=== PATIENT | male | born 1960 | race Caucasian/White ===

== ENCOUNTER → 2016-10-27 | Outpatient (CLI) | payer BC, OTHER ==
--- NOTE | ~2016-10-27 | 2DMMODE ---
[facility] [address] [place] [address] 2 D/M-MODE ECHOCARDIOGRAM Name: JIGNESH NICOLAS Room #: REG [place]#: [id number] Admission: 10/27/16 Attend Phys: Gilberto Nieves Discharge: Date of : 56 Date of Service: 10/27/16 1625 Report #: [id number] THIS REPORT FOR: //name// APPROVED REPORT Study performed: 10/27/2016 14:30:26 EXAM: Comprehensive 2D, Doppler, and color-flow Echocardiogram Patient Location: Out-Patient Room #: Echo lab BSA: 2.17 Rhythm: Atrial Fibrillation Other Information Study Quality: Good Indications Atrial Fibrillation Hypertension/HDD 2D Dimensions RVDd: 32.82 mm LVEF(%): 42.48 (>50%) IVSd: 12.43 (7-11mm) LVOT Diam: 22.58 (18-24mm) LVDd: 40.96 mm PWd: 11.96 (7-11mm) Ascending Ao: 32.16 (22-36mm) LVDs: 32.52 (25-40mm) Aortic Root: 33.60 mm IVC: 26.00 mm North's LVEF: 42.48 % Volumes Left Atrial Volume (Systole) Single Plane 4CH: 82.47 mL Single Plane 2CH: 108.37 mL LA ESV Index: 47.00 mL/m2 Aortic Valve AoV Peak Edu.: 1.14 m/s AO Peak Gr.: 5.24 mmHg LVOT Max P.27 mmHg LVOT Max V: 1.02 m/s KAI Vmax: 3.59 cm2 Mitral Valve MV Decel. Time: 95.44 ms MV E Max Edu.: 1.12 m/s [facility] [address] [place] [address] 2 D/M-MODE ECHOCARDIOGRAM Name: JIGNESH NICOLAS [facility] [id number] Admission: 10/27/16 Attend Phys: Gilberto Vill[facility]alselect [facility] Discharge: Date of : 56 Date of Service: 10/27/16 1625 Report #: [id number] Pulmonary Valve PV Peak Edu.: 0.75 m/s PV Peak Gr.: 2.26 mmHg Tricuspid Valve RAP Estimate: 10.00 mmHg Left Ventricle The left ventricle is normal size. Mild concentric left ventricular hypertrophy. The left ventricular systolic function is normal. The left ventricular ejection fraction is within the normal range. LVEF is 55%. This study is not technically sufficient to allow evaluation of the LV diastolic function due to atrial fibrillation. Right Ventricle The right ventricle is normal size. The right ventricular systolic function is normal. Atria Left atrium is dilated. Right atrium is at the upper limits of normal. Aortic Valve The aortic valve is normal in structure. Trace aortic regurgitation is present. There is no aortic valvular stenosis. Mitral Valve The mitral valve is normal in structure. Mild mitral regurgitation. No evidence of mitral valve stenosis. Tricuspid Valve The tricuspid valve is normal in structure. There is no tricuspid valve stenosis. Trace tricuspid regurgitation. Pulmonic Valve The pulmonary valve is normal in structure. Trace pulmonic regurgitation. Great Vessels The aortic root is normal in size. IVC is dilated and collapses >50% with inspiration. Pericardium Trace pericardial effusion. <Conclusion> [facility] [address] [place] [address] 2 D/M-MODE ECHOCARDIOGRAM Name: JIGNESH NICOLAS Room #: [facility] [place]#: [id number] Admission: 10/27/16 Attend Phys: Gilberto Vill[facility]alselect [facility] Discharge: Date of : 56 Date of Service: 10/27/161624 Report #: [id number] The left ventricle is normal size. Mild concentric left ventricular hypertrophy. The left ventricular systolic function is normal. The right ventricle is normal size. Left atrium is dilated. Trace aortic regurgitation is present. Mild mitral regurgitation. Trace tricuspid regurgitation. <ELECTRONICALLY SIGNED> By: Bernard Moulton MD 10/27/16 1625 1625 1625 Bernard Moulton MD /INF
== END ==
LOC: CV 09:13
DX: I10 Essential (primary) hypertension (principal); I48.91 Unspecified atrial fibrillation; I34.0 Nonrheumatic mitral (valve) insufficiency

== ENCOUNTER → 2016-11-21 | Outpatient (CLI) | payer BC, OTHER ==
[~2016-11-21] VITALS: Ht 190.5 cm; Wt 86.2 kg
[~2016-11-21] MED LIST: ATORVASTATIN CA40 MG PO; FLECAINIDE ACET50 M1 PO; PRADAXA150 MG PO; TOPROL XL100 MG PO
--- NOTE | ~2016-11-21 | EKG ---
[address] [place] [address] ELECTROCARDIOGRAM REPORT Name: JIGNESH NICOLAS Room #: [facility] [id number] Admission: 11/21/16 Attend Phys: Gilberto Nieves MD Discharge: Date of : 56 Report #: [id number] THIS REPORT FOR: //name// [facility] Test Date: 2016-11-21 Test Time: 09:10:57 Pat Name: JIGNESH NICOLAS Department: Room: Gender: Conduit Helper: clyde : 1960 Requested By: Gilberto Nieves Order Number: [id number] MD: Taco Arroyo Measurements Intervals [place] Rate: 61 P: 73 DE: 240 QRS: 82 QRSD: 107 T: 45 QT: 478 QTc: 482 Interpretive Statements Sinus rhythm Prolonged DE interval Left atrial enlargement RSR' in V1 or V2, right VCD Borderline prolonged QT interval No previous ECG available for comparison Electronically Signed On 11-23-2016 13:26:44 CDT by Taco Arroyo [email or web address] <ELECTRONICALLY SIGNED> By: Taco Arroyo MD, [facility] 11/23/16 1326 0910 0910 Taco Arroyo MD, [facility] /EPI
--- NOTE | ~2016-11-21 | P ---
[facility] [place] [place] [address] PROCEDURE REPORT Name: JIGNESH ANDERSON [facility] [id number] Admission: 11/21/16 Attend Phys: Gilberto Nieves MD Discharge: Date of : 56 Report #: [id number] THIS REPORT FOR: //name// CC: FAM unknown Gilberto Nieves DATE OF SERVICE: 11/21/2016 PREOPERATIVE DIAGNOSIS: Atrial fibrillation. POSTOPERATIVE DIAGNOSIS: Atrial fibrillation. HISTORY: Mr. Jignesh Anderson is a 56-year-old, recently diagnosed with AFib, who is here for cardioversion, after being anticoagulated and loaded with flecainide. DESCRIPTION OF PROCEDURE: The patient underwent informed consent. The patient was sedated by the anesthesiology service. Once the patient was sedated, he underwent a successful 200 joule synchronized cardioversion with anabaptism of sinus rhythm. There were no complications. CONCLUSION: Successful DC cardioversion of atrial fibrillation to sinus rhythm. <ELECTRONICALLY SIGNED> By: Gilberto Nieves MD 11/21/16 1132 0914 0953 Gilberto Nieves MD /nt
[2016-11-21 07:57] VITALS: BP 128/84
[2016-11-21 07:57] LABS: HEMATOCRIT 47.9 % (42.0-52.0); HEMOGLOBIN 16.2 gm/dL (14.0-18.0); MCH 30.4 pg (26.0-34.0); MCHC 33.7 g/dL (28.0-37.0); MCV 90.1 fL (80.0-100.0); RBC 5.32 mil/uL (4.50-6.00); RDW 14.9 % (10.5-14.5); WBC 7.4 thou/uL (4.0-11.0)
[2016-11-21 08:11] LABS: APTT 44.8 Seconds (24.5-32.8); INR 1.2; PROTIME 12.1 Seconds (9.3-11.4)
[2016-11-21 08:15] LABS: CALCIUM 8.8 mg/dL (8.5-10.1)
[2016-11-21 08:20] LABS: TOTAL BILIRUBIN 1.2 mg/dL (<0.1-1.0); TOTAL PROTEIN 7.1 g/dL (6.4-8.2)
== END | disposition home or self-care (01) ==
LOC: CATH 07:15
PROVIDERS: Internal Medicine Cardiovascular Disease
DX: I48.91 Unspecified atrial fibrillation (principal); I10 Essential (primary) hypertension; E78.5 Hyperlipidemia, unspecified; Z98.890 Other specified postprocedural states; Z82.49 Family history of ischemic heart disease and other diseases of the circulatory system

== ENCOUNTER → 2020-03-22 | Outpatient (CLI) | payer OTHER | LOC: SJCVCIMAG 11:09 | PROVIDERS: ATTEND Internal Medicine Cardiovascular Disease | DX: I08.8 Other rheumatic multiple valve diseases (principal); I48.91 Unspecified atrial fibrillation ==

== ENCOUNTER → 2020-04-11 | Outpatient (CLI) | payer OTHER | LOC: LAB 09:00 | PROVIDERS: ATTEND Internal Medicine Cardiovascular Disease | DX: Z01.812 Encounter for preprocedural laboratory examination (principal); Z20.822 Contact with and (suspected) exposure to COVID-19 ==

== ENCOUNTER → 2020-04-11 | Outpatient (CLI) | payer OTHER ==
[2020-04-11 08:39] LABS: ABSOLUTE NEUTROPHILS 4.8 thou/uL (1.4-8.2); BASOPHILS 0.7 % (0.0-2.0); EOSINOPHILS 4.1 % (0.0-3.0); HEMATOCRIT 46.1 % (42.0-52.0); HEMOGLOBIN 14.9 gm/dL (14.0-18.0); LYMPHOCYTES 17.2 % (24.0-44.0); MCH 29.4 pg (26.0-34.0); MCHC 32.4 g/dL (28.0-37.0); PLATELET COUNT 261 thou/uL (150-400); RBC 5.07 mil/uL (4.50-6.00); RDW 13.9 % (10.5-14.5); WBC 7.1 thou/uL (4.0-11.0)
[2020-04-11 09:02] LABS: ALBUMIN 3.8 g/dL (3.4-5.0); CALCIUM 9.2 mg/dL (8.5-10.1); POTASSIUM 4.7 mmol/L (3.5-5.1); TOTAL BILIRUBIN 0.8 mg/dL (0.2-1.0); TOTAL PROTEIN 7.1 g/dL (6.4-8.2)
== END ==
LOC: CAT 07:41
PROVIDERS: ATTEND Internal Medicine Cardiovascular Disease
DX: I25.10 Atherosclerotic heart disease of native coronary artery without angina pectoris (principal); R91.8 Other nonspecific abnormal finding of lung field; J98.11 Atelectasis; M47.814 Spondylosis without myelopathy or radiculopathy, thoracic region

== ENCOUNTER → 2020-04-16 | Outpatient (CLI) | payer OTHER ==
[~2020-04-16] VITALS: Ht 190.5 cm; Wt 88.0 kg
[~2020-04-16] MED LIST changes: +AVAPRO75 MG PO; +ELIQUIS5 MG PO
--- NOTE | ~2020-04-16 | P ---
[facility] [place] [place] [address] PROCEDURE REPORT Name: JIGNESH NICOLAS Room #: REG [facility]#: [id number] Admission: 04/16/20 Attend Phys: Nahid Castrejon MD, Discharge: Date of : 56 Report #: [id number] THIS REPORT FOR: cc: Mik Casarez MD, Neal A. MD Couchonnal, Luis F. MD ~ DATE OF SERVICE: 04/16/2020 PREOPERATIVE DIAGNOSIS: Atrial fibrillation. POSTOPERATIVE DIAGNOSIS: Atrial fibrillation. PROCEDURES PERFORMED: 1. Atrial fibrillation ablation, CPT code 96672. 2. 3D mapping, CPT code 21484. 3. Intracardiac echo, CPT code 04200. 4. Focal ablation, CPT code 41435. ANESTHESIA: The patient underwent general anesthesia with no anesthesia related complications. DESCRIPTION OF PROCEDURE: The patient underwent informed consent. We discussed the details of the procedure including the risks, which include but not limited to bleeding, infection, vascular damage, cardiac perforation, pneumothorax. He understood these risks and is willing to proceed. The patient was brought to EP laboratory in fasting and sedated state, prepped and draped in a sterile fashion. I injected lidocaine to the right groin and obtained access to the right femoral vein x3, placing an 8, 9 and 7-Ukrainian short sheath using the modified Seldinger technique. Next, under fluoroscopy, decapolar catheter was placed in the coronary sinus and ICE catheter was placed in the right atrium. At baseline, the patient was in atrial fibrillation with a controlled ventricular response. Using intracardiac ultrasound, there was evidence of 2 left pulmonary veins, the left atrial appendage was inspected and there was no evidence of clot. Next, the patient had evidence of a right superior, right middle and right inferior pulmonary vein. Next, the patient was systemically heparinized and a transseptal was performed, which was straightforward and I exchanged the SL1 sheath for the cryo sheath. I inspected the left atrial anatomy, also with intracardiac ultrasound by taking the ultrasound camera via the cryo sheath into the left atrium. Next, the Lasso catheter was placed in the left atrium and a 3D voltage map of the left atrium was created. Next, I started by isolating the pulmonary veins. The left superior pulmonary vein underwent a 4-minute freeze and isolated within 49 seconds. The left inferior pulmonary vein underwent a 4-minute freeze and isolated within 85 seconds. A second freeze of 3 minutes duration was also [address] [address] PROCEDURE REPORT Name: JIGNESH NICOLAS Room #: REG CLI [place]#: [id number] Admission: 04/16/20 Attend Phys: Nahid Castrejon MD, Discharge: Date of : 56 Report #: [id number]. Next, the right superior pulmonary vein underwent a 300-second freeze, which resulted in isolation at 120 seconds. The right middle pulmonary vein underwent a 4-minute freeze followed by a 3-minute freeze, which resulted in isolation in the right inferior pulmonary vein, underwent a 4-minute freeze, which resulted in isolation in 90 milliseconds. Next, a repeat 3D voltage map was created and all veins were noted to be isolated. The patient remained in atrial fibrillation. Therefore, I decided to perform a roofline. Roofline creation. Using the cryoablation balloon, I performed 4 freezes of the posterior roof anchored from the left superior pulmonary vein and then performed a single 3-minute freeze anchored from the right superior pulmonary vein. Post-ablation, a repeat voltage map was created, which showed that all 4 pulmonary veins were isolated and the posterior roof and posterior mid atrium were now electrically isolated. The patient then underwent a 200 joule synchronized cardioversion with protestant of sinus rhythm. Next, an EP study was performed and AV block was noted at 380 milliseconds. AV ignacia ERP was noted at 290 milliseconds at a [address] cycle length. Aggressive atrial burst pacing down to 250 milliseconds was performed and I could not induce any atrial flutter, atrial fibrillation or SVT. As such, the procedure was concluded. The patient received systemic protamine and once the ACT was within acceptable range, catheters and sheaths were pulled and hemostasis was obtained. A xkmiec-ly-nifaq suture with a 3-way stopcock was performed. Post-ablation, he was in sinus rhythm with a sinus cycle length of 970 milliseconds, IA interval 210 milliseconds, QRS duration 93 milliseconds, QT interval 451 milliseconds. CONCLUSIONS: 1. Successful AFib ablation with isolation of the pulmonary veins including a right middle pulmonary vein. 2. Successful posterior roof isolation. By: [id number] [id number] Gilberto Nieves MD /nt
[2020-04-16 07:26] VITALS: BP 121/86
[2020-04-16 07:38] LABS: ABSOLUTE NEUTROPHILS 4.2 thou/uL (1.4-8.2); MCV 90.4 fL (80.0-100.0); WBC 6.5 thou/uL (4.0-11.0)
[2020-04-16 07:40] LABS: BASOPHILS 0.7 % (0.0-2.0); HEMATOCRIT 45.2 % (42.0-52.0); LYMPHOCYTES 19.6 % (24.0-44.0); MCH 29.9 pg (26.0-34.0); MCHC 33.1 g/dL (28.0-37.0); PLATELET COUNT 239 thou/uL (150-400); POLYS 64.7 % (36.0-66.0); RDW 13.7 % (10.5-14.5)
[2020-04-16 07:58] LABS: CALCIUM 8.4 mg/dL (8.5-10.1); POTASSIUM 4.1 mmol/L (3.5-5.1)
[2020-04-16 08:00] LABS: APTT 27.8 Seconds (24.5-32.8); PROTIME 10.4 Seconds (9.3-11.4)
[2020-04-16 08:07] LABS: ALBUMIN 3.7 g/dL (3.4-5.0); TOTAL BILIRUBIN 0.4 mg/dL (0.2-1.0); TOTAL PROTEIN 6.9 g/dL (6.4-8.2)
--- NOTE | 2020-04-16 14:54 | 2DMMODE ---
[facility] [place] [address] 2 D/M-MODE ECHOCARDIOGRAM Name: JIGNESH NICOLAS Room #: REG DIAN DonovanSita#: [id number] Admission: 04/16/20 Attend Phys: Nahid Castrejon MD, Discharge: Date of : 56 Report #: [id number] THIS REPORT FOR: cc: Mik Casarez MD, Neal A. MD Santiago, Patrick MD [facility] ~ APPROVED REPORT Study performed: 04/16/2020 13:28:17 EXAM: Limited 2D Echocardiogram Patient Location: Observation Room #: 2 Status: routine BSA: 2.17 HR: 75 bpm BP: 121/86 mmHg Other Information Study Quality: Adequate Indications 2D Dimensions IVSd: 11.83 (7-11mm) LVOT Diam: 24.41 (18-24mm) LVDd: 44.07 mm PWd: 10.81 (7-11mm) Left Atrium: 51.91 (27-40mm) Aortic Root: 34.38 mm Left Ventricle The left ventricle is normal size. There is normal left ventricular wall thickness. The left ventricular systolic function is normal. The left ventricular ejection fraction is within the normal range. LVEF is 55-60%. Right Ventricle The right ventricle is normal size. Atria The left atrium size is normal. Aortic Valve The aortic valve is normal in structure. [facility] [address] [place] [address] 2 D/M-MODE ECHOCARDIOGRAM Name: JIGNESH NICOLAS Room #: REG [place]#: [id number] Admission: 04/16/20 Attend Phys: Nahid Castrejon, Discharge: Date of : 56 Report #: [id number] Mitral Valve The mitral valve is normal in structure. Great Vessels The aortic root is normal in size. Pericardium Trace pericardial effusion. <Conclusion> Normal left ventricular size/mild septal basal hypertrophy Ejection fraction 55% Normal right ventricular size/function Normal atrial size Limited study, Doppler, color flow study was not performed Normal aortic/mitral valve structure Physiological pericardial effusion <ELECTRONICALLY SIGNED> By: Nahid Castrejon MD, FACC 04/16/20 1454 1454 145 Nahid Castrejon MD, FACC /INF
--- NOTE | 2020-04-17 08:08 | TEE ---
[facility] [address] [address] [place] [address] TRANSESOPHAGEAL ECHOCARDIOGRAM Name: JIGNESH NICOLAS Room #: REG [facility]#: [id number] Admission: 04/16/20 Attend Phys: Nahid Castrejon MD, Discharge: Date of : 56 Report #: [id number] THIS REPORT FOR: cc: Mik Casarez MD, Neal A. MD Santiago, Patrick MD [facility] ~ APPROVED REPORT Study performed: 04/16/2020 07:51:55 EXAM: Transesophageal Echocardiogram Patient Location: Observation Room #: Status: routine BSA: 2.15 HR: 104 bpm BP: 121/86 mmHg Other Information Study Quality: Good Indications Atrial Fibrillation Procedure After obtaining informed consent, patient underwent transesophageal echo in the EP Lab. Type of Sedation : General Anesthesia Sedation start time: 824 Case end Time: 834 Transesophageal probe was inserted and advanced into esophagus without difficulty by Nahid Castrejon MD. Echo enhancement indication: R/O Septal defect. Echo enhancement agent administered: Agitated Saline The OSMANI was performed without complications. Throughout the procedure, the blood pressure, pulse oximetry, cardiac rhythm, and rate were monitored. The patient tolerated the procedure without adverse effects. Recovery from conscious sedation was uneventful and vital signs were stable. Left Ventricle The left ventricle is normal size. Basal septal hypertrophy The left ventricular systolic function is normal. The left ventricular [facility] [address] [place] [address] TRANSESOPHAGEAL ECHOCARDIOGRAM Name: JIGNESH NICOLAS Room #: REG [facility]#: [id number] Admission: 04/16/20 Attend Phys: Nahid Castrejon, Discharge: Date of : 56 Report #: [id number] ejection fraction is within the normal range. 60% Right Ventricle The right ventricle is normal size. The right ventricular systolic function is normal. Atria Left atrium is mildly dilated. The right atrium size is normal. Aortic Valve The aortic valve is normal in structure. No aortic regurgitation is present. There is no aortic valvular stenosis. Mitral Valve Myxomatous mitral valve Trace central mitral valve insufficiency No evidence of mitral valve stenosis. Tricuspid Valve The tricuspid valve is normal in structure. There is no tricuspid valve regurgitation noted. Pulmonic Valve The pulmonary valve is normal in structure. Great Vessels The aortic root is normal in size. Pericardium There is no pericardial effusion. 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 [address] [place] [address] TRANSESOPHAGEAL ECHOCARDIOGRAM Name: JIGNESH NICOLAS Room #: REG M.R.#: [id number] Admission: 04/16/20 Attend Phys: Nahid Castrejon, Discharge: Date of : 56 Report #: [id number] No pericardial effusion <ELECTRONICALLY SIGNED> By: Nahid Castrejon MD, FACC 04/17/20 08 08 08 Nahid Castrejon MD, FACC /INF
== END | disposition home or self-care (01) ==
LOC: CATH 04-13 06:39
PROVIDERS: Internal Medicine Cardiovascular Disease; ATTEND Internal Medicine
DX: I48.91 Unspecified atrial fibrillation (principal); I34.0 Nonrheumatic mitral (valve) insufficiency; I10 Essential (primary) hypertension; E78.5 Hyperlipidemia, unspecified; Z98.890 Other specified postprocedural states; Z79.899 Other long term (current) drug therapy; Z79.01 Long term (current) use of anticoagulants; Z20.822 Contact with and (suspected) exposure to COVID-19; Z98.52 Vasectomy status; Z82.49 Family history of ischemic heart disease and other diseases of the circulatory system
CPT/HCPCS: 62110; 62900; 70005

== ENCOUNTER → 2020-07-23 | Outpatient (CLI) | payer OTHER ==
[~2020-07-23] VITALS: Ht 188 cm; Wt 88.2 kg
[~2020-07-23] MED LIST changes: +MULTAQ 400 MG400 MG PO
--- NOTE | ~2020-07-23 | P ---
[facility] [place] [address] PROCEDURE REPORT Name: MARIA ISABELJIGNESH Chaudhary [facility] [id number] Admission: 07/23/20 Attend Phys: Gilberto Nieves MD Discharge: Date of : 56 Report #: [id number] THIS REPORT FOR: cc: Mik Casarez MD, Neal A. MD Couchonnal, Luis F. MD ~ DOC #: [id number] Gilberto Nieves MD DATE OF SERVICE: 07/23/2020 PROCEDURE: Cardioversion. PREOPERATIVE DIAGNOSIS: Atrial fibrillation. POSTOPERATIVE DIAGNOSIS: Atrial fibrillation. DESCRIPTION OF PROCEDURE: The patient underwent informed consent. He was then sedated by the anesthesiology service. Once sedated, underwent a 200 joules synchronized cardioversion with hindu of sinus rhythm. There are no procedure related complications. CONCLUSIONS: Successful DC cardioversion with hindu of sinus rhythm. Gilberto Nieves MD LFC/SOHAM By: 0932 0010 Gilberto Nieves MD /nt
[2020-07-23 07:10] VITALS: BP 112/82
[2020-07-23 07:46] LABS: PROTIME 10.8 Seconds (9.3-11.4)
[2020-07-23 07:47] LABS: ABSOLUTE NEUTROPHILS 4.7 thou/uL (1.4-8.2); BASOPHILS 0.6 % (0.0-2.0); EOSINOPHILS 5.2 % (0.0-3.0); HEMATOCRIT 47.1 % (42.0-52.0); HEMOGLOBIN 15.4 gm/dL (14.0-18.0); MCH 28.8 pg (26.0-34.0); MCHC 32.7 g/dL (28.0-37.0); MCV 88.1 fL (80.0-100.0); MONOCYTES 10.1 % (1.0-8.0); POLYS 67.1 % (36.0-66.0); RBC 5.35 mil/uL (4.50-6.00); RDW 14.7 % (10.5-14.5)
[2020-07-23 07:48] LABS: CALCIUM 8.6 mg/dL (8.5-10.1); POTASSIUM 4.2 mmol/L (3.5-5.1)
[2020-07-23 07:54] LABS: ALBUMIN 3.7 g/dL (3.4-5.0); TOTAL BILIRUBIN 0.9 mg/dL (0.2-1.0)
[2020-07-23 08:57] LABS: PLATELET COUNT 233 thou/uL (150-400)
== END | disposition home or self-care (01) ==
LOC: CATH 06:27
PROVIDERS: ATTEND Internal Medicine Cardiovascular Disease
DX: I48.91 Unspecified atrial fibrillation (principal); I42.9 Cardiomyopathy, unspecified; I10 Essential (primary) hypertension; E78.5 Hyperlipidemia, unspecified; K21.9 Gastro-esophageal reflux disease without esophagitis; Z98.890 Other specified postprocedural states; Z79.899 Other long term (current) drug therapy; Z98.52 Vasectomy status; Z82.49 Family history of ischemic heart disease and other diseases of the circulatory system; Z79.01 Long term (current) use of anticoagulants; Z20.822 Contact with and (suspected) exposure to COVID-19
CPT/HCPCS: 62110; 62900

== ENCOUNTER 2020-09-20 06:22 | Observation (INO) | payer OTHER ==
[~2020-09-20] VITALS: Ht 188 cm; Wt 91.5 kg
--- NOTE | ~2020-09-20 | P ---
[facility] [place] [address] PROCEDURE REPORT Name: JIGNESH NICOLAS Room #: 200-I [facility] Alma Núñez#: [id number] Admission: 09/20/20 Attend Phys: Gilberto Nieves MD Discharge: 09/21/20 Date of : 56 Report #: [id number] THIS REPORT FOR: cc: Mik Casarez MD, Neal A. MD Couchonnal, Luis F. MD ~ DATE OF SERVICE: 09/20/2020 ATRIAL FIBRILLATION/ATRIAL FLUTTER ABLATION PREOPERATIVE DIAGNOSIS: Atrial fibrillation/atrial flutter. POSTOPERATIVE DIAGNOSIS: Atrial fibrillation/atrial flutter. HISTORY: The patient is a 60-year-old with recent AFib ablation performed in 04/2020, who has had clinical recurrence and is here for redo procedure. PROCEDURES PERFORMED: 1. AFib ablation, CPT code 33817. 2. 3D mapping, CPT code 10651. 3. Arterial line placement, CPT code 99036. 4. Intracardiac echo, CPT code 55678. 5. Focal ablation, CPT code 91559. 6. Second pathway ablation, CPT code 45100. DESCRIPTION OF PROCEDURE: The patient was brought to the EP laboratory in fasting and sedated state, prepped and draped in a standard fashion. He was placed under general anesthesia. I obtained access of the right femoral vein placing an 8, 6 and 9-Tajik short sheath. In the left femoral vein, I placed a 7-Tajik short sheath. In the left femoral artery, I placed a 5-Tajik short sheath for arterial blood pressure monitoring. Next, under fluoroscopy, a decapolar catheter was placed in the coronary sinus. Of note, this would frequently fall out throughout the procedure, but was easily repositioned. The ICE catheter was placed into the right atrium and there was evidence of 2 left and 2 right pulmonary veins. At baseline, the patient was in atrial fibrillation. Next, the patient was systemically heparinized and a transseptal was performed using Agilis sheath and a [place] needle. This was straightforward and then I placed the PentaRay catheter into left atrium and a repeat voltage map of the left atrium was created. This showed that all pulmonary veins were isolated except for the left inferior pulmonary vein. There were very small signals remaining in this vein, but from the prior procedure the majority of the posterior roof region was also isolated. Therefore, SmartTouch ThermoCools placed into the left atrium and I started by isolating the left posterior wall. I performed extensive ablation along the lower aspect of the posterior wall and I was careful to monitor temperatures along the esophagus where we used shorter ablation lesions and the esophageal temperatures remained within acceptable [address] [address] PROCEDURE REPORT Name: JIGNESH NICOLAS Room #: 200-I ELZA Núñez#: [id number] Admission: 09/20/20 Attend Phys: Gilberto Nieves MD Discharge: 09/21/20 Date of : 56 Report #: [id number] range. I then performed ablation along the ridge between the left superior and appendage. The patient appeared to organize into a mitral annular flutter, therefore a mitral annular flutter line was performed, which I performed along the anterior part of the atrium and made a connection to the right superior pulmonary vein. Along the right superior pulmonary vein up, pacing was performed at high output to ensure that no ablation was performed along the phrenic. After completion of this line, the patient degenerated from the mitral annular flutter into atrial fibrillation. Additional ablation was performed along the roof region and near the left atrial appendage. Next, a repeat voltage map was created and it showed that the entire posterior wall was isolated and there appeared to be a nice mitral annular line performed. As such, I pulled over to the right atrium and we mapped this area as well, which demonstrated essentially atrial fibrillation. There were no focal areas to ablate on this side. Therefore, the patient was cardioverted and underwent atrial flutter ablation with line performed at 6 o'clock along the tricuspid annulus. Post-ablation, the patient was in sinus rhythm. There was no evidence of pericardial effusion and there were no procedure-related complications. The patient received systemic protamine and once the ACT was within acceptable range, catheters and sheaths were pulled and hemostasis obtained. CONCLUSIONS: 1. Successful AFib ablation with re-isolation of the left inferior pulmonary vein. 2. Successful posterior wall isolation. 3. Successful mitral annular line ablation. 4. Successful right-sided atrial flutter ablation. By: 1021 0101 Gilberto Nieves MD /nt
[2020-09-20 07:32] VITALS: BP 128/87
[2020-09-20 07:46] LABS: ABSOLUTE NEUTROPHILS 3.9 thou/uL (1.4-8.2); BASOPHILS 0.7 % (0.0-2.0); EOSINOPHILS 4.4 % (0.0-3.0); HEMATOCRIT 45.1 % (42.0-52.0); HEMOGLOBIN 14.9 gm/dL (14.0-18.0); LYMPHOCYTES 19.6 % (24.0-44.0); MCH 29.7 pg (26.0-34.0); MCHC 33.1 g/dL (28.0-37.0); MCV 89.6 fL (80.0-100.0); MONOCYTES 10.9 % (1.0-8.0); PLATELET COUNT 211 thou/uL (150-400); POLYS 64.4 % (36.0-66.0); RBC 5.03 mil/uL (4.50-6.00); RDW 15.1 % (10.5-14.5)
[2020-09-20 07:56] LABS: CALCIUM 8.3 mg/dL (8.5-10.1); CREATININE 0.9 mg/dL (0.7-1.3); POTASSIUM 4.3 mmol/L (3.5-5.1)
[2020-09-20 08:02] LABS: ALBUMIN 3.5 g/dL (3.4-5.0); TOTAL BILIRUBIN 0.5 mg/dL (0.2-1.0); TOTAL PROTEIN 6.7 g/dL (6.4-8.2)
[2020-09-20 08:14] LABS: APTT 26.2 Seconds (24.5-32.8); PROTIME 10.3 Seconds (9.3-11.4)
[2020-09-20 15:30] VITALS: BP 113/72
[2020-09-20 15:52] VITALS: BP 113/72
[2020-09-20 19:25] VITALS: BP 104/76
--- NOTE | 2020-09-20 19:26 | NUR ---
PT CARE ASSUMED AT 0700. ASSESSMENTS CHARTED. MEDICATIONS CHARTED. RFA IV. SINUS TACHYCARDIA. URINAL. ADENOSINE GIVEN UNDER DR LASSITER SUPERVISION, NOT RESOLVED. DIOXIN GIVEN, NOT RESOLVED. BEDREST UNTIL 1935. AFIB ABLATION. BILAT GROIN; RT ARTERY, LT VENOUS, C/D/I. AMIODARONE AT 33 ML/HR.
[2020-09-21] VITALS: BP 110/65
[2020-09-21 03:41] VITALS: BP 103/61
--- NOTE | 2020-09-21 07:11 | EKG ---
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 : 1960 Requested By: Gilberto Nieves Order Number: [id number] MD: Nahid Castrejon Measurements Intervals [place] Rate: 147 P: WA: QRS: 75 QRSD: 82 T: -82 QT: 293 QTc: 459 Interpretive Statements Suspect atrail flutter Repol abnrm suggests ischemia, diffuse leads Compared to ECG 11/21/2016 09:10:57 Junctional tachycardia now present Early repolarization now present Possible ischemia now present Sinus rhythm no longer present First degree AV block no longer present Atrial abnormality no longer present Electronically Signed On 09-21-2020 7:11:07 CDT by Nahid Castrejon [email or web address] <ELECTRONICALLY SIGNED> By: Nahid Castrejon MD, [facility] 09/21/20 0711 1733 173 Nahid Castrejon MD, [facility] /EPI
[2020-09-21 07:34] VITALS: BP 114/74
[2020-09-21] MEDS ORDERED: PACERONE200 MG PO (10:11)
[2020-09-21 10:38] VITALS: BP 114/74
--- NOTE | 2020-09-21 10:43 | NUR ---
IV AND TELE DISCONTINUED AND PATIENT UNDERSTANDS ALL FOLLOW UP ORDERS. WILL DISCHARGE TO HOME.
[2020-09-21 11:13] VITALS: BP 114/74
--- NOTE | 2020-09-21 11:42 | EKG ---
[address] [place] [address] ELECTROCARDIOGRAM REPORT Name: JIGNESH NICOLAS Neena Room #: [facility]#: [id number] Admission: 09/20/20 Attend Phys: Gilberto Nieves MD Discharge: 09/21/20 Date of : 56 Report #: [id number] 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 : [id number] Requested By: Odette Mckay Order Number: [id number] MD: Nahid Castrejon Measurements Intervals [place] Rate: 74 P: 79 SC: 225 QRS: 51 QRSD: 98 T: 18 QT: 433 QTc: 481 Interpretive Statements Sinus rhythm Atrial premature complexes Prolonged SC interval Left atrial enlargement RSR' in V1 or V2, right VCD or RVH Left ventricular hypertrophy Borderline prolonged QT interval Compared to ECG 09/20/2020 17:33:57 Atrial premature complex(es) now present First degree AV block now present RSR' in V1 or V2 now present Left ventricular hypertrophy now present Electronically Signed On 09-21-2020 11:41:47 CDT by Nahid Castrejon [email or web address] <ELECTRONICALLY SIGNED> By: Nahid Castrejon MD, [facility] 09/21/20 1141 9 9 Nahid Castrejon MD, [facility] /EPI
== END 2020-09-21 11:17 | disposition home or self-care (01) ==
LOC: CATH 06:22 → 2N 15:45
PROVIDERS: ADMIT Internal Medicine Cardiovascular Disease; ATTEND Internal Medicine Cardiovascular Disease
DX: I48.91 Unspecified atrial fibrillation (principal); I48.92 Unspecified atrial flutter; I10 Essential (primary) hypertension; E78.5 Hyperlipidemia, unspecified
CPT/HCPCS: 10797; 62110; 62900; 65020; 70005

== ENCOUNTER → 2020-11-16 | Outpatient (CLI) | payer OTHER ==
[~2020-11-16] MED LIST changes: +PACERONE200 MG PO
== END ==
LOC: CAT 11-14 08:45
PROVIDERS: ATTEND Pediatrics
DX: R91.1 Solitary pulmonary nodule (principal); R91.8 Other nonspecific abnormal finding of lung field